=== PATIENT | male | born 1980 | race Caucasian/White ===

== ENCOUNTER 2019-08-25 11:48 | Outpatient (CLI) | payer OTHER, SELFPAY ==
--- NOTE | 2019-08-25 | DI.RAD_ITS ---
EXAM: XR ELBOW RT COMPLETE CLINICAL HISTORY: ELBOW JOINT PAIN RT M25.521, DISLOCATED 4 DAYS AGO, SWELLING AND BRUISING TECHNIQUE: The exam was performed according to the usual protocol. COMPARISON: No exams were available for comparison FINDINGS: Three views were obtained. There is soft tissue swelling of the elbow. No definite evidence of join t effusion. Small ossific radiodensity is seen adjacent to the flexor surface of the articular marley n of the proximal ulna, probable accessory ossicle, osteophyte or fracture fragment not entirely excl uded. Otherwise the bones appear intact. No evidence of dislocation or subluxation. IMPRESSION: No definite fracture seen. If there is a high clinical suspicion of fracture additional evaluation w ith CT may be considered.
== END 2019-08-25 12:08 ==
PROVIDERS: PCP Family Medicine; Visit Provider Nurse Practitioner Family
DX: S59.901A Unspecified injury of right elbow, initial encounter (principal)
CPT/HCPCS: 73080

== ENCOUNTER 2020-07-04 01:32 | Outpatient (CLI) | payer OTHER, SELFPAY ==
--- NOTE | 2020-07-04 08:45 | DI.MRI_ITS ---
EXAM: MR UPPER JOINT RT WO CLINICAL HISTORY: RT ELBOW LATERAL EPICONDYLITIS,M77.11,SURGICAL PLANNING,FAILED CONSERVATIVE TECHNIQUE: Multiplanar multisequence MRI was performed without intravenous contrast. Multiplanar multisequence MRI of the right elbow was performed. COMPARISON: No exams were available for comparison FINDINGS: Quality of images are degraded by motion artifact, specifically on coronal STIR sequence. MARROW: There is no evidence of fracture, bone contusion, nor ominous osseous lesions. No evidence o f osteochondral defect in the trochlea and capitellum. ELBOW JOINT: There is a small elbow joint effusion.No significant cartilage loss nor osteochondral de fect and there is no evidence of loose intra-articular body. There are no osteophytes. EPICONDYLES: There is some increased signal in the common extensor or tendon adjacent to the lateral epicondyle consistent with epicondylitis, this best seen on the axial images as the coronal fat-sat T 2 sequence is blurred by motion artifact. Similar findings are not seen on the opposite-medial aspec t of the elbow. COLLATERAL LIGAMENTS: Difficult to evaluate due to motion artifact TENDONS: The biceps tendon is intact. The brachialis tendon is intact. The triceps tendon is intact. CUBITAL TUNNEL/ULNAR NERVE: The ulnar nerve appears unremarkable beneath the cubital tunnel retinacul um and posterior to the medial epicondyle. There is no evidence of arthritic spur arising from the e picondyle nor olecranon causing impingement on the ulnar nerve. There is no evidence of accessory an coneus muscle causing impingement at this level. There is also no evidence of soft tissue mass nor g anglia on cyst causing impingement at this level. OTHER FINDINGS: IMPRESSION: 1. Study is limited by motion artifact, particularly on coronal fat sat sequence. However, there lobo s appear to be in lateral epicondylitis, some increased signal seen in the common extensor tendon. N o obvious intraosseous signal abnormality. 2. There is a small of 0 joint effusion. No osteochondral defect seen and no obvious loose intra-art icular body. Radial head appears unremarkable. DATA REPOSITORY:
== END 2020-07-04 01:52 ==
LOC: DI 01:33
PROVIDERS: PCP Family Medicine; Visit Provider Student in an Organized Health Care Education/Training Program
DX: M77.11 Lateral epicondylitis, right elbow (principal); M25.421 Effusion, right elbow
CPT/HCPCS: 73221

== ENCOUNTER 2020-08-16 02:55 | Outpatient (CLI) | payer OTHER, SELFPAY ==
[2020-08-17 13:26] LABS: COVID-19 RT-PCR UVMMC Result Negative (Negative)
== END 2020-08-16 02:56 | disposition home or self-care (01) ==
LOC: LBO 02:55
PROVIDERS: PCP Family Medicine; Visit Provider Student in an Organized Health Care Education/Training Program
DX: Z20.822 Contact with and (suspected) exposure to COVID-19 (principal); Z01.818 Encounter for other preprocedural examination; M77.11 Lateral epicondylitis, right elbow
CPT/HCPCS: U0003

== ENCOUNTER 2020-08-19 07:57 | Day surgery (SDC) | payer OTHER, SELFPAY ==
[2020-08-19] VITALS (7 sets, daily range): BP systolic 95–160; BP diastolic 60–92; PULSE 64–91; RESP 13–20; TEMP 36.1–36.3; O2SAT 96–99
[2020-08-19] MEDS: Lactated Ringers 1,000 ML 100 ML IV (08:42)
[2020-08-19] MEDS: ceFAZolin 2 GM/50 ML BAG IVPB (10:24)
[2020-08-19] MEDS: EPINEPHrine 30 MG/30 ML VIAL (11:28)
--- NOTE | 2020-08-19 12:41 | PDOC.DSDIS_ITS ---
Discharge Plan Disposition Patient Disposition: HOME Condition: Stable Discharge Details Reason For Visit: Right elbow surgery Attending Provider: Duarte Beaver Primary Care Provider: Jorge Ha Home Meds and New Rx's Prescriptions: New naproxen 250 mg tablet 250 - 500 mg PO BID PRN (Reason: Moderate pain or swelling) Qty: 60 RF: 0 aspirin 81 mg tablet,delayed release (DR/EC) 81 mg PO DAILY 14 Days Qty: 14 RF: 0 oxycodone 5 mg tablet 5 - 10 mg PO Q4H PRN (Reason: moderate to severe pain) Qty: 16 RF: 0 Continued naproxen 500 mg tablet 500 mg PO BID RF: 0 acetaminophen 500 mg Tablet 1,000 mg PO QID PRNRF: 0 Discontinued ibuprofen 800 MG tablet 800 mg PO PRN PRNRF: 0 Discharge Instructions Additional Instructions: Surgery: Elbow arthroscopy with debridement lateral epicondylitis Activity: Weightbearing as tolerated. Discontinue sling as soon as comfortable. Elevate and rest elbow on pillows to minimize swelling and discomfort. Please perform daily range of motion exercises. Avoid heavy lifting and manual labor for a 6-8 weeks. A physical therapy prescription will be provided separately in the office at follow-up if needed. Prescriptions: Aspirin 81 mg take 1 daily to prevent a blood clot for 2 weeks Naproxen 250 mg take 1-2 every 12 hours with a meal as needed for moderate pain Oxycodone 5 mg take 1-2 every 4-6 hours as needed for severe pain You may use [id number] Tylenol (acetaminophen) as needed for mild pain. These pain medications may be taken all at once or in different combinations as needed. Also, recommend Colace (docusate) as a stool softener as surgery and pain medicine cause constipation. Dressings: Leave dressing in place for 3 days. Adjust Black wrap as needed. May then remove and leave open to air or cover incisions with Band-Aids. May shower after 5 days. Follow-up: 10-[address] Beaver (08/31/20 at 11:30 AM). No work until after follow-up. Let us know right away if you develop any redness, drainage, fevers, chest pain, or trouble breathing. Do not drink alcohol or drive for at least 24 hours after anesthesia. Please call the office during business hours with any questions or concerns. Referrals: Duarte Beaver MD [ [facility] STAFF PHYSICIAN] - DS: Diagnosis Discharge Diagnosis (1) Lateral epicondylitis, right elbow: Status: Acute (2) Elbow dislocation: Status: Acute
--- NOTE | 2020-08-19 12:54 | ROE_ITS ---
Date of service: 08/19/20 Time of Service: 12:00 Operative Note Operative Note DATE OF PROCEDURE: 08/19/20 PRE-OP DIAGNOSIS: Right elbow lateral epicondylitis POST-OP DIAGNOSIS: same PROCEDURE: Right elbow arthroscopy with debridement lateral epicondylitis, CPT # 59036 SURGEON: Duarte Beaver EMERGENCY ROOM PHYSICIAN: Emma Mancilla ANESTHESIA TYPE: General LMA/ETT Refer to Anesthesia Record ESTIMATED BLOOD LOSS: 5 PATHOLOGY: none sent TOURNIQUET TIME: 0 COMPLICATIONS: None Patient was transported to: PACU Indications: Please see complete medical record for details. Findings: Moderate anterior and lateral synovitis. Intact cartilaginous surfaces. Thickened common extensor tendon origins ECRB and ECRL. Mild subluxation radial head relative to the capitellum without gross instability. Mild posterior compartment synovitis. Intact coronoid tip and olecranon. Procedure Description: In the operating room, general anesthesia was induced. The patient was positioned lateral on the operating room table. All bony prominences were well-padded. Preoperative antibiotics were administered. The elbow was prepped and draped in the usual sterile fashion. The correct patient, procedure, and side of the procedure were all verified prior to incision. 20 cc of normal saline was used to insufflate the elbow joint through the lateral soft spot. The savanna and spread technique was used to establish the proximal anteromedial portal. A diagnostic arthroscopy of the anterior elbow compartment was performed with findings noted above. A spinal needle was used to localize a proximal anterolateral working portal again using careful savanna and spread technique. The spinal needle was used to set the superior and inferior margins of the resection as well as free up disease tissue from its bony origin. Care was taken to work anterior to the midline of the radial head to preserve the EDC origin and radial collateral ligament. A 4 mm shaver was used to debride approximately 1 cm of diseased ECRB and ECRL tendon and lightly abrade lateral epicondyle bony origin. Shaver was also used to remove the small amount of lateral and anterior synovitis. The anterior compartment was drained of arthroscopic fluid. Given the traumatic nature of the patient's injury, an additional diagnostic arthroscopy of the posterior elbow compartment was then performed. The elbow was brought into moderate extension. The transtriceps and posterior lateral portals were established again using appropriate savanna and spread technique and bluntly opening the posterior joint space prior to insertion of the arthroscope and the mechanical shaver. The posterior compartment demonstrated only mild synovitis which was removed with mechanical shaver. The posterior compartment was drained of arthroscopic fluid. The portals were closed using 3-0 Monocryl in a buried interrupted fashion. Mastisol was applied about the incisions which were covered with Steri-Strips. Xeroform pieces were applied over the incisions and covered with dry 4 x 4 gauze and sterile soft roll. The wrist to arm was gently wrapped with tori bandage. The patient awoke from anesthesia without complication and was transferred to the recovery room in stable fashion.
== END 2020-08-19 15:00 | disposition home or self-care (01) ==
PROVIDERS: PCP Family Medicine; Visit Provider Student in an Organized Health Care Education/Training Program
PROC: (CPT 29830; principal; 2020-08-19 09:00)
DX: M77.11 Lateral epicondylitis, right elbow (principal); G89.18 Other acute postprocedural pain; S53.001A Unspecified subluxation of right radial head, initial encounter; X58.XXXA Exposure to other specified factors, initial encounter; M65.88 Other synovitis and tenosynovitis, other site
CPT/HCPCS: 29837; 76942; J0690; J1100; J1885; J2001; J2250; J2405; J2704

== ENCOUNTER 2023-04-03 12:47 | Outpatient (REF) | payer BC, SELFPAY ==
[2023-04-03 21:31] LABS: Abs Immature Grans 0.02 10^3/uL (0.0-0.06); Absolute Basophil Count 0.08 10^3/uL (0.0-0.2); Absolute Eosinophil Count 0.15 10^3/uL (0.0-0.7); Absolute Lymphocyte Count 1.69 10^3/uL (1.2-3.4); Absolute Monocyte Count 0.39 10^3/uL (0.1-0.8); Basophils % 1.4; Eosinophils % 2.6; HCT 46.9 % (40.0-50.0); HGB 16.1 g/dL (13.5-17.5); Immature Grans % 0.3; Lymphocytes % 29.5; MCH 32.8 pg (27.0-33.0); MCHC 34.3 % (32.0-36.0); MCV 96 fL (80-95); MPV 10.9 fL (8.0-11.0); Monocytes % 6.8; Neutrophils % 59.4; Platelet Count 240 10^3/uL (130-400); RBC 4.91 10^6/uL (4.36-5.78); RDW 12.3 % (11.8-14.1); RDW-SD 43.4 fL; WBC 5.73 10^3/uL (4.4-10.8)
[2023-04-03 21:55] LABS: ALT 45 U/L (16-63); AST 24 U/L (15-37); Albumin 3.9 g/dL (3.4-5.0); Alkaline Phosphatase 94 U/L (46-116); Anion Gap 10.9 mmol/L (3-11); BUN 12 mg/dL (7-18); Bilirubin, Total 0.4 mg/dL (0.2-1.0); CO2 25.1 mmol/L (21.0-32.0); CREATININE 1.1 mg/dL (0.70-1.30); Calcium 9.1 mg/dL (8.5-10.1); Chloride 101 mmol/L (98-107); Estimated GFR 84.89 (mL/min/1.73m2); Glucose 137 mg/dL (74-106); Lipase 67 U/L (16-77); Potassium 4.4 mmol/L (3.5-5.1); Sodium 137 mmol/L (136-145); Total Protein 7.2 g/dL (6.4-8.2)
== END 2023-04-03 12:48 | disposition home or self-care (01) ==
LOC: LBN 12:47
PROVIDERS: PCP Family Medicine; Visit Provider Nurse Practitioner Family
DX: R19.8 Other specified symptoms and signs involving the digestive system and abdomen (principal); R19.7 Diarrhea, unspecified; R11.2 Nausea with vomiting, unspecified; J06.9 Acute upper respiratory infection, unspecified; R10.31 Right lower quadrant pain; R10.32 Left lower quadrant pain
CPT/HCPCS: 80053; 83690; 85025

== ENCOUNTER 2023-12-11 14:32 | Emergency (ER) | payer OTHER, BC, SELFPAY ==
--- NOTE | 2023-12-11 14:34 | ED.GENADUL_ITS ---
Discharge Plan Discharge Details Primary Care Provider: Jorge Ha ED Provider: Jorge Cr Home Meds and New Rx's Prescriptions: No Action naproxen 500 mg tablet 500 mg PO BID PRN (Reason: pain) Qty: 90 0RF cyclobenzaprine 10 mg tablet 10 mg PO HS ondansetron 4 mg tablet,disintegrating 4 mg PO Q6H PRN (Reason: nausea and vomiting) Qty: 7 0RF acetaminophen 500 mg Tablet 1,000 mg PO QID PRN naproxen 250 mg tablet 250 - 500 mg PO BID PRN (Reason: Moderate pain or swelling) Qty: 60 0RF HPI General Date/Time Provider Initiated Documentation: 12/11/23 14:34 . HPI Narrative: MDM Chronic conditions affecting the care of the patient: [] History obtained from an outside historian: [] External record review: [] [Diagnostic interpretations performed by me: Per my independent interpretation chest x-ray shows: Per my independent interpretation EKG shows: ]Medications: [] Social determinants of health affecting disposition: [] Management discussed with: [] Treatment/interventions considered: [] Response to therapies provided: [] HPI [ ] Exam General: Well-appearing in no acute distress speaking in complete sentences. Head: Normocephalic, atraumatic. Eye:[Pupils equal, round reactive to light.] Extraocular eye movements intact. No conjunctival injection. No scleral icterus. Ear, nose, mouth, throat: Grossly normal inspection. Normal voice, handling secretions normally. Neck: Trachea midline. Cardiovascular: Well-perfused distal extremities. Respiratory: Nonlabored respiration. Gastrointestinal: Nondistended abdomen. Musculoskeletal: No edema. Moving all 4 extremities spontaneously. Skin: Normal for age and race, grossly normal temperature and turgor. No acute rash. Neurologic: Alert and appropriate, no apparent acute deficits. Psychiatric: Mood and manner are appropriate. Grooming and personal hygiene are appropriate. Related Data Home Medications Medication Instructions Recorded Confirmed acetaminophen 500 mg tablet 1,000 mg PO QID PRN 08/19/20 04/03/23 naproxen 250 mg tablet 250 - 500 mg (1 - 2 x 250 mg) PO 08/19/20 04/03/23 BID PRN Moderate pain or swelling #60 tabs naproxen 500 mg tablet 500 mg PO BID PRN pain #90 tabs 07/31/22 04/03/23 cyclobenzaprine 10 mg tablet 10 mg PO HS 04/03/23 04/03/23 ondansetron 4 mg disintegrating 4 mg PO Q6H PRN nausea and 04/03/23 04/03/23 tablet vomiting #7 tabs Previous Rx's Medication Instructions Recorded naproxen 250 mg tablet 250 - 500 mg (1 - 2 x 250 mg) PO 08/19/20 BID PRN Moderate pain or swelling #60 tabs naproxen 500 mg tablet 500 mg PO BID PRN pain #90 tabs 07/31/22 ondansetron 4 mg disintegrating 4 mg PO Q6H PRN nausea and 04/03/23 tablet vomiting #7 tabs Allergies Allergy/AdvReac Type Severity Reaction Status Date / Time No Known Allergies Allergy Unverified 04/03/23 11:31 Medical Decision Making Quality:SDOH Health Related Social Needs: No Data to Display PFSH All Active Problems Tobacco use (Acute) Lateral epicondylitis, right elbow (Acute) S/P R elbow arthroscopy 08/19/2020 Medical History Chronic diarrhea of unknown origin Elbow dislocation (~08/2019) Low back pain Surgical History Colonoscopy - IV Sedation 4-5 years ago Hx of reconstruction of anterior cruciate ligament tear Lateral epicondylitis, right elbow S/P R elbow arthroscopy 08/19/2020 Family History Other Crohn's colitis Social History Smoking/Tobacco Use Status: Current every day Tobacco Type: cigarettes Smoking risk assessment performed?: Yes Alcohol Intake: current Alcohol Intake frequency: 0-2 drinks per day Drug use: Daily Substance use type: marijuana Current gender identity: male Do you feel safe at home: Yes Do you feel safe in your relationship?: Yes
[2023-12-11 14:35] VITALS: BP 159/93; PULSE 93; RESP 16; TEMP 37; O2SAT 99
--- NOTE | 2023-12-11 15:54 | ED.GENADUL_ITS ---
Discharge Plan Disposition Patient Disposition: Home Discharge Details Clinical Impression: Acute left-sided low back pain Primary Care Provider: Jorge Ha ED Provider: Jorge Cr Home Meds and New Rx's Prescriptions: New cyclobenzaprine 7.5 mg tablet 7.5 mg PO TID PRNQty: 14 0RF lidocaine [Lidoderm] 5 % adhesive patch,medicated 1 patch topical DAILY Qty: 15 0RF Rx Instructions: leave on most painful area for up to 12 hrs naproxen sodium [Aleve] 220 mg capsule 440 mg PO BID PRNQty: 20 0RF Discontinued naproxen 500 mg tablet 500 mg PO BID PRN (Reason: pain) Qty: 90 0RF cyclobenzaprine 10 mg tablet 10 mg PO HS naproxen 250 mg tablet 250 - 500 mg PO BID PRN (Reason: Moderate pain or swelling) Qty: 60 0RF No Action ondansetron 4 mg tablet,disintegrating 4 mg PO Q6H PRN (Reason: nausea and vomiting) Qty: 7 0RF acetaminophen 500 mg Tablet 1,000 mg PO QID PRN Discharge Instructions Instructions: Low Back Pain ED Additional Instructions: You are seen in the emergency department for your low back pain. As we discus sed please return to the emergency department if you develop any numbness or tingling between your legs, if you lose control of your bowels or bladder, or if you develop any nausea or vomiting. Prescriptions have been sent to your pharmacy. Please call your primary care team to arrange for follow-up. Stand Alone Forms: Physical Therapy Referral, Work Release Discharge Data Discharge Date/Time-TO BE ENTERED AT DEPARTURE: 12/11/23 16:08 HPI General Date/Time Provider Initiated Documentation: 12/11/23 14:34 . HPI Narrative: MDM This is an overall very well-appearing normothermic and not tachycardic 43-year-old male with acute left-sided low back pain lacking red flags and appropriate for empiric trial of discharge with expectant outpatient management. No saddle anesthesia to suggest cauda equina. No anticoagulation nor with any recent spinal procedures so my suspicion is low for spinal epidural hematoma. No pain or proportion to suggest necrotizing soft tissue infection. No fevers no history of IV drug use to suggest increased risk for spinal epidural abscess. No neurological deficits so my suspicion is low for CVA based on the patient's lack of risk factors. No rash to suggest zoster. No flank pain to suggest ureterolithiasis. Soft nontender abdomen with no fevers no abdominal pain so my suspicion is low for appendicitis and diverticulitis. No dysuria no frequency so doubt UTI. No sciatic symptoms. I gave patient a work note cyclobenzaprine and acetaminophen ibuprofen and Lidoderm patch. We discussed return to the ED for any worsening pain saddle anesthesia or loss of bowel or bladder control. I also wrote patient a prescription for physical therapy. Patient understood return indications and was discharged with empiric trial of expectant outpatient management. HPI This is a 43-year-old male with a remote history of low back pain arriving to the emergency department via private vehicle in the setting of low back pain. Patient reports that 6 days ago at work he bent forward and was picking up a heavy bucket with some liquid in it. He has had no history of any spinal surgeries. No loss of bowel or bladder control. He is not anticoagulated. He denies any nausea vomiting chest pain. He saw his chiropractor yesterday which improved his symptoms slightly. He has occasionally had some left leg tingling. No weakness. He describes a low back pain that is nonradiating. He occasionally smokes tobacco and marijuana and occasionally drinks ethanol. He previous had similar symptoms was seen by his primary care provider and received cyclobenzaprine and Aleve. He has had no dysuria no frequency. No history of ureterolithiasis. Exam General: Well-appearing in no acute distress speaking in complete sentences. Head: Normocephalic, atraumatic. Eye: Extraocular eye movements intact. No conjunctival injection. No scleral icterus. Ear, nose, mouth, throat: Grossly normal inspection. Normal voice, handling secretions normally. Neck: Trachea midline. Cardiovascular: Well-perfused distal extremities. Regular rate and rhythm Respiratory: Nonlabored respiration. Clear lungs Gastrointestinal: Nondistended abdomen. Soft nontender. Back: No step-offs. No deformities. No rash. Mild left-sided paraspinal muscle tenderness. Musculoskeletal: No edema. Moving all 4 extremities spontaneously. 5 out of 5 bilateral lower extremity strength. 2+ patellar reflexes bilaterally. 5 out of 5 strength dorsi and plantarflexion bilaterally. 2+ DP and PT pulses bilaterally. Skin: Normal for age and race, grossly normal temperature and turgor. No acute rash. Neurologic: Alert and appropriate, no apparent acute deficits. Psychiatric: Mood and manner are appropriate. Grooming and personal hygiene are appropriate. Related Data Home Medications Medication Instructions Recorded Confirmed acetaminophen 500 mg tablet 1,000 mg PO QID PRN 08/19/20 12/11/23 ondansetron 4 mg disintegrating 4 mg PO Q6H PRN nausea and 04/03/23 12/11/23 tablet vomiting #7 tabs cyclobenzaprine 7.5 mg tablet 7.5 mg PO TID PRN #14 tabs 12/11/23 lidocaine 5 % topical patch 1 patch topical DAILY #15 ea 12/11/23 (Lidoderm) naproxen sodium 220 mg capsule 440 mg (2 x 220 mg) PO BID PRN #20 12/11/23 (Aleve) caps Previous Rx's Medication Instructions Recorded ondansetron 4 mg disintegrating 4 mg PO Q6H PRN nausea and 04/03/23 tablet vomiting #7 tabs cyclobenzaprine 7.5 mg tablet 7.5 mg PO TID PRN #14 tabs 12/11/23 lidocaine 5 % topical patch 1 patch topical DAILY #15 ea 12/11/23 (Lidoderm) naproxen sodium 220 mg capsule 440 mg (2 x 220 mg) PO BID PRN #20 12/11/23 (Aleve) caps Allergies Allergy/AdvReac Type Severity Reaction Status Date / Time No Known Allergies Allergy Unverified 12/11/23 14:40 General Stated Complaint: Orthopedic ZACKARY: 4 Course Vital Signs Vital signs: Vital Signs Temperature 37.0 C 12/11/23 14:35 Pulse 93 H 12/11/23 14:35 Respiratory Rate 16 12/11/23 14:35 Blood Pressure 159/93 H 12/11/23 14:35 Pulse Oximetry 99 12/11/23 14:35 Temperature 37.0 C 12/11/23 14:35 Pulse 93 H 12/11/23 14:35 Respiratory Rate 16 12/11/23 14:35 Respiratory Effort Normal, Non-Labored 12/11/23 14:40 Blood Pressure 159/93 H 12/11/23 14:35 Pulse Oximetry 99 12/11/23 14:35 Oxygen Delivery Method Room Air 12/11/23 14:35 Oxygen Flow Rate 0 12/11/23 14:35 Pain Level 3 12/11/23 15:07 Medical Decision Making Quality:SDOH Health Related Social Needs: No Data to Display PFSH All Active Problems Acute left-sided low back pain (Acute) Tobacco use (Acute) Lateral epicondylitis, right elbow (Acute) S/P R elbow arthroscopy 08/19/2020 Medical History Chronic diarrhea of unknown origin Elbow dislocation (~08/2019) Low back pain Surgical History Colonoscopy - IV Sedation 4-5 years ago Hx of reconstruction of anterior cruciate ligament tear Lateral epicondylitis, right elbow S/P R elbow arthroscopy 08/19/2020 Family History Other Crohn's colitis Social History Smoking/Tobacco Use Status: Current every day Tobacco Type: cigarettes Smoking risk assessment performed?: Yes Alcohol Intake: current Alcohol Intake frequency: 0-2 drinks per day Drug use: Daily Substance use type: marijuana Details: has not smoked cigarettes since 12/07/23 - LIO QUINTERO 12/11/23 Housing: house Current gender identity: male Do you feel safe at home: Yes Do you feel safe in your relationship?: Yes PAWSS Have you Been Recently Intoxicated or Drunk Within the Last 30 days?: No Have you Ever Experienced Previous Episodes of Alcohol Withdrawal?: No Have you ever Experienced Withdrawal Seizures?: No Have you ever Experienced Delirium Tremens(DT)s?: No Have you ever undergone Alcohol Rehabilitation Treatment (i.e, inpt ot outpatient treatment programs)?: No Have you ever Experienced Blackouts?: No Have you ever Combined Alcohol with other Downers within the last 90 days?: No Have you ever Combined Alcohol with any other Substance of Abuse during the last 90 days?: No Result: 0
[2023-12-11] MEDS: Acetaminophen 500 MG TAB 1000 MG PO (16:00)
[2023-12-11] MEDS: Ibuprofen 600 MG TAB PO (16:00)
[2023-12-11] MEDS: Lidocaine 5% Patch 1 PATCH TP (16:00)
== END 2023-12-11 16:08 | disposition home or self-care (01) ==
LOC: ER 16:11
PROVIDERS: Emergency Provider Emergency Medicine; PCP Family Medicine
DX: M54.50 Low back pain, unspecified (principal); X50.0XXA Overexertion from strenuous movement or load, initial encounter; Y99.0 Civilian activity done for income or pay
CPT/HCPCS: 99282; 99283

== ENCOUNTER → 2024-01-21 01:01 | Outpatient (CLI) | payer OTHER, SELFPAY ==
--- NOTE | 2024-01-21 07:30 | DI.MRI_ITS ---
Exam(s) MR LUMBAR SPINE WO EXAM: MR LUMBAR SPINE WO CLINICAL HISTORY: persistent numbness LLE,ACUTE LT SIDED LOW BACK PAIN,M54.50,R20.0,R20.2. TECHNIQUE: Multiplanar multisequence MRI of the Lumbar spine was performed. COMPARISON: CT ABD PELVIS WITH CONTRAST from 04/29/2015 FINDINGS: Bones: The last intervertebral disc space is designated the L5/S1 level for the numbering purpose of this examination. The vertebral body heights are well maintained. Alignment is satisfactory. Mild d egenerative endplate signal changes are present. Marrow signal is otherwise within normal limits. Cord: The conus tip ends at the L2 level. It is of normal size and signal intensity. T12-L1: No disc herniations or bulges are present. No central spinal canal or neural foraminal stenos is. L1-2: No disc herniations or bulges are present. No central spinal canal or neural foraminal stenosis . L2-3: No disc herniations or bulges are present. No central spinal canal or neural foraminal stenosis . L3-4: No disc herniations or bulges are present. No central spinal canal or neural foraminal stenosis . L4-5: No disc herniations or bulges are present. No central spinal canal or neural foraminal stenosis .Mild degenerative changes of the facets are present. L5-S1: There is a small central disc herniation. No nerve root compression is seen. No central spin al canal or neural foraminal stenosis.Mild degenerative changes of the facets are present. Soft tissues: The visualized SI joints and sacrum are well maintained. The paraspinal soft tissues ar e unremarkable. IMPRESSION: 1. There is a small central disc herniation at L5-S1 but no nerve root compression, central spinal ca nal or neural foraminal stenosis results. 2. Mild degenerative changes seen in the lumbar spine. No central spinal canal or neural foraminal s tenosis is present. DATA REPOSITORY:
== END ==
PROVIDERS: PCP Student in an Organized Health Care Education/Training Program; Visit Provider Nurse Practitioner Family
DX: M54.50 Low back pain, unspecified (principal); R20.0 Anesthesia of skin; R20.2 Paresthesia of skin
CPT/HCPCS: 72148

== ENCOUNTER 2024-12-11 01:29 | Outpatient (CLI) | payer OTHER, SELFPAY ==
--- NOTE | 2024-12-11 11:25 | DI.RAD_ITS ---
Exam(s) XR LUMBAR SPINE COMPLETE EXAM: XR LUMBAR SPINE COMPLETE CLINICAL HISTORY: eval pathology,lumbar pain,m54.50. TECHNIQUE: 2D digital imaging was performed. COMPARISON: No exams were available for comparison FINDINGS: Five views. No evidence fracture, listhesis, nor pars defects. All the disc spaces exhibit normal height. No obvious significant facet arthrosis. No scoliosis. Bone density normal. No osseous lesions. Some calcification is noted in the abdominal aorta and iliac arteries, indicating atherosclerotic involvement.. IMPRESSION: No significant radiographic findings in the lumbosacral spinal column. DATA REPOSITORY: RADIATION DOSE DELIVERED:
== END 2024-12-11 01:49 ==
LOC: DI 01:29
PROVIDERS: Visit Provider Nurse Practitioner Family
DX: M54.50 Low back pain, unspecified (principal)
CPT/HCPCS: 72110